=== PATIENT | female | born 1985 | race Hispanic/Latino ===

== ENCOUNTER 2017-05-15 22:27 | Emergency (ER) | payer OTHER, SELFPAY ==
[2017-05-15] MEDS ORDERED: Ondansetron HCl/PF 4 MG/2 ML Vial ONE (22:50)
[2017-05-16] MEDS ORDERED: Acetaminophen 500 MG TAB ONE (00:12)
== END 2017-05-16 00:38 | disposition home or self-care (01) ==
LOC: ERS 22:27
DX: E86.0 Dehydration (principal); Z87.891 Personal history of nicotine dependence
CPT/HCPCS: 96361; 96374; J2405

== ENCOUNTER 2017-07-13 16:42 | Outpatient (CLI) | payer OTHER | END 2017-07-13 16:43 | disposition home or self-care (01) | LOC: LABBT 16:42 | PROVIDERS: ATTEND Orthopaedic Surgery Hand Surgery | DX: Z01.818 Encounter for other preprocedural examination (principal); Z01.812 Encounter for preprocedural laboratory examination; S66.127A Laceration of flexor muscle, fascia and tendon of left little finger at wrist and hand level, initial encounter ==

== ENCOUNTER 2017-07-24 09:46 | Day surgery (SDC) | payer OTHER ==
[2017-07-13 17:11] VITALS: BMI 43.0
[2017-07-24 11:15] LABS: Anion Gap 11 mmol/L (10-20); BUN (Urea Nitrogen) 11 mg/dL (7.0-18.7); Calc. Creatinine Clearance 187 mL/min (70-130); Calcium 9.5 mg/dL (7.8-10.44); Carbon Dioxide 24 mmol/L (22-29); Chloride 108 mmol/L (98-107); Estimated GFR-MDRD Greater than 90; Glucose 94 mg/dL (70-105); Potassium 4.4 mmol/L (3.5-5.1); Sodium 139 mmol/L (136-145)
[2017-07-24] MEDS ORDERED: Fentanyl 250 MCG/5 ML VIAL ONE ×2 (11:45→13:35)
[2017-07-24] MEDS ORDERED: Midazolam HCl 2 mg/2 ml Vial ONE (11:45)
[2017-07-24] MEDS ORDERED: Thrombin 5000 UNITS/5 ML VIAL ONE (11:57)
[2017-07-24] MEDS ORDERED: Bacitracin Zinc Ointment 30 gm TUBE ONE (11:57)
[2017-07-24] MEDS ORDERED: Sodium Chloride 0.9% 10 ML ONE (11:58)
[2017-07-24] MEDS ORDERED: CEFAZOLIN/Water 2 GM/20 ML SYRINGE ONE (12:12)
[2017-07-24] MEDS ORDERED: Bupivacaine PF 0.5% 30 ML VIAL ONE (12:40)
--- NOTE | 2017-07-24 13:43 | RAD ---
PA AND LATERAL CHEST: INDICATIONS: Preop evaluation. COMPARISON: 11/18/2012 IMPRESSION: No acute cardiopulmonary abnormality. Cholecystectomy. The examination is not appreciably changed f rom the comparison study. POS: [facility]
[2017-07-24] MEDS ORDERED: Ketorolac Tromethamine 30 MG/ML VIAL ONE (16:20)
[2017-07-24] MEDS ORDERED: Fentanyl 100 MCG/2 ML VIAL ONE (16:44)
--- NOTE | 2017-07-24 17:17 | RAD ---
SINGLE INTRAOPERATIVE RADIOGRAPHS OF THE LEFT HAND 07/24/17 COMPARISON: None. HISTORY: Hand repair. FINDINGS: A single cone down lateral radiograph of one of the fingers is provided. A partially visualized middl e phalanx and distal phalanx is visualized on the lateral exam. No frontal imaging provided. IMPRESSION: Limited lateral radiograph of a left finger. POS: [facility]
--- NOTE | 2017-07-25 14:20 | OP ---
DATE OF PROCEDURE: 07/24/2017 PREOPERATIVE DIAGNOSIS: Flexor digitorum profundus zone 2 laceration, complete. FINDINGS/POSTOPERATIVE DIAGNOSES: 1. Granuloma, mid aspect of the subcutaneous skin with no visible foreign body seen today. 2. Complete laceration of flexor digitorum profundus zone 2 with intact flexor digitorum superficial is by the pseudotendon extending from the chiasm all the way through the A2 aparna into the A1 region requiring subcutaneous dissection and tenolysis. So, therefore, proceeded with zone 1 excision of g ranuloma, left small finger. 3. A1 aparna release. 4. Left flexor digitorum profundus, superficialis tenolysis, finger and palm and 3 flexor carpi radi sia one-half, radial aspect, graft harvested and used flexor digitorum profundus graft through intac t flexor digitorum superficialis zone 2, left small finger. TOURNIQUET TIME: 130 minutes. ESTIMATED BLOOD LOSS: 20 mL. INJECTABLE: A 15 mL of 0.5% Marcaine with no epinephrine. FINDINGS: Neurovascular bundle intact. INDICATIONS: The patient is now nearly 7 months since a piece of glass cut her hand. She believes s he might have a piece of glass in her hand, she has thickening over the mid portion on the middle pha lanx and on exam in clinic. She has 80 degrees of PIP joint flexion, no active DIP joint flexion and a mass in her palm at the A1 aparna level indicative of a complete laceration of flexor digitorum pr ofundus and the intact superficialis. I explained the patient we will restore tendon function, note that for 7 months, she probably had to have a graft and that the graft at one stage may have contract ed scar, may not even work, but she still agreed to proceed. DESCRIPTION OF THE PROCEDURE: After successful general LMA technique, the limb was prepped and drape d. The patient had a time out done appropriately. No beta blockers were identified in the sites and procedure was identified and matched the consent. We excised beginning on the laceration going zig-zag 1 cm to the level of the base to the middle port ion of the proximal phalanx, and we had an intact skin edge and then we went from distal to the lacer ation onto the level of the tuft, but slightly small to spare the tuft sensation. The incision , after tourniquet inflated, was carried through skin and subcutaneous tissue until we identified the flexor sheath. We then did a complete neuroplasty and neurovascular bundle into the valgu s. Here, we made a small incision in the sheath between the A2 and A3 aparna, discovered that there was a flexure digitorum profundus tendon mass even at this level, but we started with thickening of t he skin proximal to this indicative of the laceration area. We dissected this removing any subcutane ous granuloma, but there is no foreign body or glass seen. We then opened the incision in the palm proximal A1 aparna and found that the inside A1 aparna was ps eudo, though they entered the pseudotendon from flexor digitorum profundus, laceration and protecting the intact flexor digitorum superficialis, which when pulled could flex the PIP joint to 90 degrees, we removed the pseudotendon and deformity with lysis both in the palm and in the finger of both the FDS and the remnant FDP. Remnant FDP was not easily separatable and pulled distal to the A4 aparna. Here, we dissected down to the base. We used this to make a trough for tendon graft. A trough was made with a 4 mm andre, was approximately 5 mm wide and 3.5 mm deep without fracture of the bone. Ind eed the wires would be pulled through with the pull-through suture without fracture either. At this point, we realized we needed approximately 11 cm of tendon, with tendolysis complete, we pass ed the wire from the A4 aparna, under the remnant of A3, under the A2, and into the area where the A1 aparna would be. We knew we had to shorten the tendon because this point the tendon stretched to un derneath the A1 aparna, so we did not want it to impinge on the A2 aparna. We then went to the arm, made an incision centered over what would be slightly radial to a palmaris l ongus dissected down deep and found. There is a little residual of vestigial palmaris longus tendon and had not been able to palpate this in the preop area. From here, we moved our incision slightly r adially, visualized it very distally, entered carpi radialis and went deep to the scaphoid, and from here began to harvest the radial aspect, the radial one-half. We then made a separate incision and h arvested the other half, removed all muscle, this half and we had 12 cm long piece. This w as then prepared, using a quadruple Mamie suture with 4-0 Prolene, and then we prepared to make frank e the ends were free and flat, moved proximally and musculature places into the palm of the hand and carried to where the wire was, which was deep to the A2 aparna, deep to the A3 aparna, deep to A4 pul jannette and then into the area where the trough had been drilled. Here, we then used the benton FDP remn ant, which was approximately 5-6 mm at this point and drilled a trough at the base where it inserted to the bone that was "approximately 5 mm and was 5 mm in diameter." The Jarad needles were then dril led on the distal edge and the radial ulnar edge of this crater, the Prolene suture pairs into them, brought out the other side, collapsing the tendon into this trough and once we were in the trough, we passed the Jarad needle through, Adaptic, bacitracin and then a button, held the finger flat s uch that the PIP joint was at approximately 7 degrees and DIP joint of approximately 35.4 degrees and then tied the button with the reduced. Then, we visualized that the area was completely sucke d into the trough distally and there was excellent tension on the button. We then cut the suture. Finally, we closed the subcutaneous and released the tourniquet, obtained hemostasis, closed the fing er incision with 5-0 interrupted nylon simple pattern while we can visualize and then we tensioned it with the distal attachment only into the proximal using a Pulvertaft weave x3 loops. Each nicholson b was secured with 4-0 Vicryl and there were no complications. The Pulvertaft weave was secured now with 4-0 Prolene in each of the three loops, each 90 degrees to each other. Once this was done, the finger easily maintained a 65-degree flexion of the PIP, and 30 degrees flexion at the DIP which is much greater tension than the other digits. We cleaned the hand, closed the palmar finger and hand incision with interrupted 4-0 nylon using inte rrupted 3-0 nylon in simple pattern for the forearm incisions. There were no complications and the p atient left the operating room in a dorsal block splint with the PIP and small finger DIP slightly mo re flexed. There was excellent pink circulation.
== END 2017-07-24 17:35 | disposition home or self-care (01) ==
LOC: SDC 09:46
PROVIDERS: ATTEND Orthopaedic Surgery Hand Surgery
PROC: 0KR Muscles, Replacement (ICD-10-PCS; principal; 2017-07-24)
PROC: 0LN80ZZ Release Left Hand Tendon, Open Approach (ICD-10-PCS; principal; 2017-07-24)
PROC: 0KBB0ZZ Excision of Left Lower Arm and Wrist Muscle, Open Approach (ICD-10-PCS; principal; 2017-07-24)
DX: S66.127A Laceration of flexor muscle, fascia and tendon of left little finger at wrist and hand level, initial encounter (principal); L92.9 Granulomatous disorder of the skin and subcutaneous tissue, unspecified; Z98.890 Other specified postprocedural states
CPT/HCPCS: 71046; 76001; 80048; 93005; 93010; 96372; 96374; A4216; J1885; J2250; J3010; J3490; S0020

== ENCOUNTER 2018-02-14 12:23 | Emergency (ER) | payer SELFPAY ==
[2018-02-14 12:59] LABS: Bilirubin Small (Negative); Blood, Urine Small (Negative); Clarity CLEAR (Clear); Glucose, Urine (Dipstick) Negative (Negative); Leukocyte Negative (Negative); Nitrite Negative (Negative); Protein, Urine (Dipstick) Negative (Neg-Trace); Specific Gravity, Urine 1.029 (1.002-1.036); Urobilinogen 0.2 mg/dL (0.2-1.0); pH, Urine 5.5 (5.0-9.0)
[2018-02-14 12:59] LABS: #Lymphocytes 1.5 thou/uL (1.20-3.40); #Monocytes 0.2 thou/uL (0.11-0.59); #Neutrophils 2.2 thou/uL (1.40-6.50); %Basophils 0.2 % (0.0-1.0); %Eosinophils 0.8 % (0.0-10.0); %Monocytes 5.9 % (0.0-10.0); %Neutrophils 55.1 % (42.0-75.0); Hemoglobin 12.6 g/dL (12.0-16.0); Mean Corpuscular HGB CONC 31.9 g/dL (32.0-36.0); Mean Corpuscular Hemoglobin 26.7 pg (27.0-31.0); Mean Corpuscular Volume 83.7 fL (78.0-98.0); Mean Platelet Volume 6.9 fL (7.4-10.4); Platelet Count 295 thou/uL (130-400); RBC Distribution Width 12.8 % (11.5-14.5)
[2018-02-14 13:01] LABS: Pregnancy Test - Urine (BHCG) Negative (Negative); Pregu Control Background? CLEAR/WHITE (CLR/WHITE); Pregu Control Bar Appear? YES (CONTROL BAR); Specific Gravity 1.029 (1.002-1.036)
[2018-02-14 13:02] LABS: Bacteria/HPF None Seen HPF (None Seen); Pathc Cast-AUWi Flag 0.72 (0-2.49); WBC/HPF 0-3 HPF (0-3)
[2018-02-14 13:19] LABS: ALT (SGPT) 31 U/L (8-55); AST (SGOT) 17 U/L (5-34); Albumin 4.4 g/dL (3.5-5.0); Alkaline Phosphatase 87 U/L (40-150); Anion Gap 12 mmol/L (10-20); BUN (Urea Nitrogen) 13 mg/dL (7.0-18.7); Bilirubin, Total 0.4 mg/dL (0.2-1.2); Calc. Creatinine Clearance 0 mL/min (70-130); Calcium 9.2 mg/dL (7.8-10.44); Carbon Dioxide 22 mmol/L (22-29); Chloride 110 mmol/L (98-107); Estimated GFR-MDRD Greater than 90; Globulin 3.5 g/dL (2.4-3.5); Glucose 94 mg/dL (70-105); Lipase 30 U/L (8-78); Potassium 3.8 mmol/L (3.5-5.1); Protein, Total 7.9 g/dL (6.0-8.3); Sodium 140 mmol/L (136-145)
[2018-02-14 13:27] LABS: Crystals/HPF 1+ CA OXALATE HPF (Negative); Hyaline Casts/LPF 0-3 HYALINE CAST LPF (0-3 Hyaline); RBC/HPF 0-3 HPF (0-3)
--- NOTE | 2018-02-14 13:53 | CT ---
CT ABDOMEN AND PELVIS WITH IV CONTRAST: 02/14/2018 HISTORY: Upper abdominal pain since Sunday with associated nausea. Abdominal pain after eating. COMPARISON: None available. FINDINGS: The lung bases are clear. Post cholecystectomy changes are noted. The liver, spleen, pancreas, bilateral adrenal glands, kidneys, and abdominal aorta demonstrate a nor mal CT appearance. The urinary bladder is decompressed and is not well evaluated on this exam. The uterus and adnexal regions have a grossly normal CT appearance for the patient's age. There are curv ilinear metallic densities seen in the region of the proximal fallopian tubes and in the region of th e cornua of the uterus, and findings are likely related to prior Essure procedure. The appendix is visualized and is normal in caliber. No free fluid, fluid collection, or lymphadenop athy is seen in the abdomen or pelvis. The osseous structures have a normal appearance. IMPRESSION: 1. No acute findings are seen in the abdomen or pelvis. 2. No CT evidence of appendicitis. 3. Colonic diverticulosis. 4. Cholecystectomy. 4. Evidence of prior Essure procedure. POS: [facility]
[2018-02-14] MEDS ORDERED: Sucralfate 1 GM/10 ML UDCUP ONE (14:58)
== END 2018-02-14 15:08 | disposition home or self-care (01) ==
LOC: ERS 12:23
DX: R10.31 Right lower quadrant pain (principal); R19.7 Diarrhea, unspecified; R11.2 Nausea with vomiting, unspecified; F32.9 Major depressive disorder, single episode, unspecified; Z87.891 Personal history of nicotine dependence
CPT/HCPCS: 36415; 74177; 80053; 81003; 81015; 81025; 83690; 85025; 96360; 96361

== ENCOUNTER 2019-07-01 10:09 | Outpatient (CLI) | payer MEDICAID ==
--- NOTE | 2019-07-01 10:48 | ULT ---
Exam: Pelvic ultrasound including Transabdominal, Transvaginal, And Vascular Duplex with color and spectral Doppler imaging: HISTORY: Pelvic pain COMPARISON: 03/28/2018 FINDINGS: The uterus is 5.9 x 4.2 x 3.6 cm Endometrial thickness:1.4 cm Right ovary:1.7 x 2.3 x 3.0 cm Left ovary:2.2 x 2.6 x 3.1 cm and contains a 1.9 x 2.1 cm slightly complicated cyst. No abscess or significant abnormal fluid collection. Vascular duplex examination demonstrates no evidence for ovarian torsion IMPRESSION: Small left ovarian complicated cyst. Somewhat thickened endometrium.
== END 2019-07-01 10:10 | disposition home or self-care (01) ==
LOC: BICULT 10:09
PROVIDERS: ATTEND Family Medicine
DX: N94.10 Unspecified dyspareunia (principal); N83.202 Unspecified ovarian cyst, left side; R93.89 Abnormal findings on diagnostic imaging of other specified body structures
CPT/HCPCS: 76856

== ENCOUNTER 2022-12-14 14:50 | Outpatient (CLI) | payer MEDICAID | END 2022-12-14 14:51 | disposition home or self-care (01) | LOC: BICMAMMO 14:50 | PROVIDERS: ATTEND Nurse Practitioner Family | DX: N64.4 Mastodynia (principal) | CPT/HCPCS: 77066; G0279 ==

== ENCOUNTER 2023-11-02 16:01 | Emergency (ER) | payer SELFPAY ==
[2023-11-02 18:27] LABS: Influenza A by NAA Not Detected (NotDetected); Influenza B by NAA Not Detected (NotDetected); SARS-CoV-2 NAA Rapid Test Not Detected (NotDetected)
== END 2023-11-02 18:48 | disposition home or self-care (01) ==
LOC: ERS 16:01
DX: J02.9 Acute pharyngitis, unspecified (principal); Z55.6 Problems related to health literacy; Z87.891 Personal history of nicotine dependence
CPT/HCPCS: 71046; 87081; 87430